=== PATIENT | female | born 1985 | race African-American/Black ===

== ENCOUNTER 2020-05-25 17:24 | Emergency (ER) | payer BC, OTHER ==
[~2020-05-25] VITALS: Ht 162.6 cm; Wt 106.6 kg
[2020-05-25] MEDS ORDERED: GLYCOPYRROLATE 22 M1 PO (19:52)
[2020-05-25 20:00] LABS: ABSOLUTE NEUTROPHILS 4.9 thou/uL (1.4-8.2); BASOPHILS 0.7 % (0.0-2.0); EOSINOPHILS 0.8 % (0.0-3.0); HEMATOCRIT 37.3 % (37.0-47.0); HEMOGLOBIN 12.3 gm/dL (12.0-15.0); LYMPHOCYTES 28.2 % (24.0-44.0); MCH 28.1 pg (26.0-34.0); MCV 85.3 fL (80.0-100.0); PLATELET COUNT 337 thou/uL (150-400); POLYS 62.3 % (36.0-66.0); RBC 4.37 mil/uL (4.20-5.00); RDW 15.3 % (10.5-14.5); WBC 7.9 thou/uL (4.0-11.0)
[2020-05-25 20:12] LABS: ANION GAP 8 mmol/L (7-16); BUN 14 mg/dL (7-18); CHLORIDE 104 mmol/L (98-107); CO2 26 mmol/L (21-32); CREATININE 1.3 mg/dL (0.6-1.0); GLUCOSE 102 mg/dL (74-106); POTASSIUM 4.1 mmol/L (3.5-5.1); SODIUM 138 mmol/L (136-145)
[2020-05-25 20:20] LABS: ALBUMIN 3.4 g/dL (3.4-5.0); SGOT 16 U/L (15-37); SGPT 23 U/L (30-65); TOTAL BILIRUBIN 0.2 mg/dL (0.2-1.0); TROPONIN-I <0.06 ng/mL (<0.06)
[2020-05-25 22:09] VITALS: BP 137/93
--- NOTE | 2020-05-26 08:01 | EKG ---
[facility] [place] [address] ELECTROCARDIOGRAM REPORT Name: EWELINA RILEY Room #: DEP CITIZENS BAPTISTYola#: [id number] Admission: 05/25/20 Attend Phys: Discharge: 05/25/20 Date of : 85 Report #: [id number] THIS REPORT FOR: cc: PEYMAN GLASGOW MD Physician not on staff Serafin Uribe MD [facility] ~ THIS REPORT FOR: //name// [facility] ED Test Date: 2020-05-25 Test Time: 19:38:12 Pat Name: EWELINA RILEY Department: Room: Gender: F [employer] In[employer] Remover: : 1985 Requested By: Liv Nielsen Order Number: [id number] MD: Serafin Uribe Measurements Intervals [place] Rate: 69 P: 44 CT: 149 QRS: 16 QRSD: 91 T: 19 QT: 364 QTc: 390 Interpretive Statements Sinus rhythm Normal tracing No previous ECG available for comparison Electronically Signed On 05-26-2020 8:01:45 CDT by Serafin Uribe [email or web address] <ELECTRONICALLY SIGNED> By: Serafin Uribe MD, [facility] 05/26/20 0801 193 37 Serafin Uribe MD, FACC /EPI
== END 2020-05-25 22:10 | disposition home or self-care (01) ==
LOC: ER 17:24
PROVIDERS: Physician Assistant
DX: R53.1 Weakness (principal); R00.2 Palpitations; R47.81 Slurred speech; R20.0 Anesthesia of skin; R20.2 Paresthesia of skin; R25.1 Tremor, unspecified; Z79.899 Other long term (current) drug therapy